=== PATIENT | female | born 1940 | race Caucasian/White ===

== ENCOUNTER 2016-11-21 10:31 | Emergency (ER) | payer MEDICARE, OTHER ==
--- NOTE | 2016-11-21 11:35 | ED.PDOC ---
History of Present Illness - General Chief Complaint: Syncope/Near Syncope Stated Complaint: Chest pain radiating down to abdomen Time Seen by Provider: 11/21/16 11:30 Source: patient, RN notes reviewed, Vital Signs reviewed Exam Limitations: no limitations - History of Present Illness Initial Comments: Patient is a 76 y/o female who has had sharp pains from her neck to her abdomen for the past month. This morning, it hurt so bad that she decided to come into the hospital. However, she got very weak and started shaking, so went to the [facility]. She threw up twice. Her sound editor brought her to the ED. The pain is sharp, is worsened by eating and laying down. She has a history of heartburn for which she takes [place] which helps. Patient admits that prior to coming to the hospital, she did take some of her 's pain medication. She took both Tramadol 50 mg and hydrocodone/APAP 10/325. Although alendronate is on her med list, she is not sure if she is taking it or not. Timing/Duration: getting worse, other - 1 month Severity: severe Worsening Factors: medication Associated Symptoms: chest pain, headaches, nausea/vomiting Allergies/Adverse Reactions: Allergies Sulfa Drugs Allergy (Verified 12/29/15 09:05) Home Medications: Ambulatory Orders Alendronate Sodium [Fosamax] 70 mg PO .QSUNDAY 12/29/15 Verapamil HCl 80 mg PO DAILY 12/29/15 Omeprazole Magnesium [Prilosec Otc] 20 mg PO QAM #30 tab 12/30/15 Pantoprazole Sodium [Protonix] 40 mg PO DAILY #37 tab 11/21/16 Review of Systems - Review of Systems Constitutional: States: weakness EENTM: States: nose congestion Respiratory: States: no symptoms reported Cardiology: States: chest pain Gastrointestinal/Abdominal: States: abdominal pain, constipation, nausea, vomiting Genitourinary: States: dysuria Musculoskeletal: States: joint pain, muscle pain Skin: States: no symptoms reported Neurological: States: headache, numbness, weakness Endocrine: States: no symptoms reported Hematologic/Lymphatic: States: no symptoms reported All other Systems: Reviewed and Negative Past Medical History (General) - Patient Medical History Hx Seizures: No Hx Stroke: No Hx Asthma: No Hx of COPD: Yes Hx Cardiac Disorders: Yes Hx Congestive Heart Failure: No Hx Pacemaker: No Hx Hypertension: Yes Hx Diabetes: No Hx MRSA: No - Vaccination History Hx Influenza Vaccination: Yes - 2014 Hx Pneumococcal Vaccination: Yes - 2012 - Social History Hx Tobacco Use: No Hx Alcohol Use: No Hx Substance Use: No Hx Physical Abuse: No Hx Emotional Abuse: No Family Medical History - Family History Father Family History: No Known Living Status: Cause of : [place] Hx Cardiac Disease: Yes Physical Exam - Physical Exam General Appearance: Alert, Anxious, Comfortable, No apparent distress Ears, Nose, Throat: hearing grossly normal, normal ENT inspection Neck: full range of motion, supple Respiratory: lungs clear, normal breath sounds, no respiratory distress, no accessory muscle use Cardiovascular/Chest: regular rate, rhythm, no edema, no gallop, no murmur Gastrointestinal/Abdominal: normal bowel sounds, soft, tenderness - generalized , however greater in epigastric/RUQ areas Extremity: normal range of motion, non-tender, normal inspection, no pedal edema , no calf tenderness Neurologic: alert, normal mood/affect, oriented x 3 Skin Exam: normal color, warm/dry Progress - Results/Orders Results/Orders: 11/21/16 11/21/16 11/21/16 11:28 11:50 12:14 Temperature 96.9 F L Pulse Rate [L 89 92 H Arm] Respiratory 18 20 Rate Blood Pressure 134/63 147/107 [R Arm] O2 Sat by Pulse 96 95 96 Oximetry 11/21/16 13:00 Temperature Pulse Rate [L 73 Arm] Respiratory 18 Rate Blood Pressure 156/93 [R Arm] O2 Sat by Pulse 97 Oximetry 11/21/16 11:30 Telemetry .ONCE Sodium Chloride 0.9% (Flush) [Saline Flush Syringe] 10 ml IV PRN PRN EKG Stat Pulse Ox Stat Laboratory Results WBC 8.3 K/mm3 (4.8-10.8) 11/21/16 11:20 RBC 4.33 M/mm3 (4.20-5.40) 11/21/16 11:20 Hgb 11.9 gm/dL (12.0-16.0) L 11/21/16 11:20 Hct 36.9 % (36.0-47.0) 11/21/16 11:20 MCV 85.2 fl (81.0-99.0) 11/21/16 11:20 MCH 27.4 pg (27.0-31.0) 11/21/16 11:20 MCHC 32.3 g/dL (33.0-37.0) L 11/21/16 11:20 RDW 14.1 % (11.5-14.5) 11/21/16 11:20 Plt Count 221 K/mm3 (130-400) 11/21/16 11:20 MPV 8.0 fl (7.40-10.4) 11/21/16 11:20 Absolute Neuts (auto) 5.90 K/uL (1.8-6.8) 11/21/16 11:20 Absolute Lymphs (auto) 1.50 K/uL (1.0-3.4) 11/21/16 11:20 Absolute Monos (auto) 0.50 K/uL (0.2-0.8) 11/21/16 11:20 Absolute Eos (auto) 0.30 K/uL (0.0-0.4) 11/21/16 11:20 Absolute Basos (auto) 0.10 K/uL (0.0-0.1) 11/21/16 11:20 Neutrophils % 70.7 % (42.0-78.0) 11/21/16 11:20 Lymphocytes % 18.6 % (20.0-50.0) L 11/21/16 11:20 Monocytes % 6.6 % (2.0-9.0) 11/21/16 11:20 Eosinophils % 3.4 % (1.0-5.0) 11/21/16 11:20 Basophils % 0.7 % (0.0-2.0) 11/21/16 11:20 PT 10.5 SECONDS (9.4-12.5) 11/21/16 11:20 INR 0.930 11/21/16 11:20 PTT (SP) 24.1 SECONDS (25.1-36.5) L 11/21/16 11:20 D-Dimer, Quantitative 862 ng/mL (0-230) H* 11/21/16 11:20 Sodium 142 mmol/L (135-145) 11/21/16 11:20 Potassium 3.9 mmol/L (3.6-5.0) 11/21/16 11:20 Chloride 105 mmol/L (101-111) 11/21/16 11:20 Carbon Dioxide 28 mmol/L (21-31) 11/21/16 11:20 Anion Gap 12.9 (12-18) 11/21/16 11:20 BUN 35 mg/dL (7-18) H 11/21/16 11:20 Creatinine 1.44 mg/dL (0.6-1.3) H 11/21/16 11:20 BUN/Creatinine Ratio 24.3 (10-20) H 11/21/16 11:20 Random Glucose 97 mg/dL (70-105) 11/21/16 11:20 Serum Osmolality 291.0 mOsm/L (275-295) 11/21/16 11:20 Calcium 9.6 mg/dL (8.4-10.2) 11/21/16 11:20 Magnesium 1.9 mg/dL (1.8-2.5) 11/21/16 11:20 Total Bilirubin 0.7 mg/dL (0.2-1.0) 11/21/16 11:20 Direct Bilirubin < 0.1 mg/dL (0-0.2) 11/21/16 11:20 Indirect Bilirubin 0.6 mg/dL (0.2-0.8) 11/21/16 11:20 AST 24 IU/L (10-42) 11/21/16 11:20 ALT 19 IU/L (10-60) 11/21/16 11:20 Alkaline Phosphatase 46 IU/L (42-121) 11/21/16 11:20 Creatine Kinase 38 IU/L (26-140) 11/21/16 11:20 CK-MB (CK-2) 1.4 ng/mL (0.0-4.4) 11/21/16 11:20 CK-MB (CK-2) % Not Reportable 11/21/16 11:20 Troponin I < 0.02 ng/mL (0.01-0.05) 11/21/16 11:20 B-Natriuretic Peptide 51.1 pg/ml (0-100) 11/21/16 11:20 Serum Total Protein 6.1 gm/dL (6.4-8.2) L 11/21/16 11:20 Albumin 3.9 g/dl (3.2-5.5) 11/21/16 11:20 Urine Color Yellow (Yellow) 11/21/16 13:07 Urine Appearance Clear (Clear) 11/21/16 13:07 Urine pH 7.0 (4.5-7.8) 11/21/16 13:07 Ur Specific [place] 1.015 (1.005-1.030) 11/21/16 13:07 Urine Protein Negative mg/dL 11/21/16 13:07 Urine Glucose (UA) Negative mg/dL (Negative) 11/21/16 13:07 Urine Ketones Negative mg/dL (NEGATIVE) 11/21/16 13:07 Urine Blood Negative (Negative) 11/21/16 13:07 Urine Nitrite Negative 11/21/16 13:07 Urine Bilirubin Negative (NEGATIVE) 11/21/16 13:07 Urine Urobilinogen 0.2 mg/dL (0.2-1.0) 11/21/16 13:07 Ur Leukocyte Esterase Negative (Negative) 11/21/16 13:07 Urine RBC 0-1 /hpf 11/21/16 13:07 Urine WBC 0 /hpf 11/21/16 13:07 Ur Epithelial Cells 0-1 /hpf 11/21/16 13:07 Urine Bacteria 0 11/21/16 13:07 - EKG/XRAY/CT EKG: Sinus - 97 bpm, no ST T wave changes, Unchanged from - 12/29/15 Comments: NML axis, Prolonged QT intervals, Abnormal EKG Departure - Departure Clinical Impression: Gastritis, Esophagitis, Dizziness ICD-10 Supporting Text: Dizziness due to medication. Time of Disposition: 14:48 Disposition: Discharge to Home or Self Care Condition: Fair Departure Forms: ED Discharge - Pt. Copy, Patient Portal Self Enrollment Instructions: DI for Esophagitis, Gastritis, DI for Gastritis Diet: bland diet Referrals: Ulises Gutierrez MD [Primary Care Provider] - 1-5 Days Prescriptions: Pantoprazole Sodium [Protonix] 40 mg PO DAILY #37 tab Home Medications: Ambulatory Orders Alendronate Sodium [Fosamax] 70 mg PO .QSUNDAY 12/29/15 Verapamil HCl 80 mg PO DAILY 12/29/15 Omeprazole Magnesium [Prilosec Otc] 20 mg PO QAM #30 tab 12/30/15 Pantoprazole Sodium [Protonix] 40 mg PO DAILY #37 tab 11/21/16 Additional Instructions: Stop Alendronate (Fosamax). Do not take any over the counter medications for stomach upset other than Maalox if needed. Keep appointment with Dr. Gutierrez on 11/23/2016. Follow up in ED if symptoms persist or worsen.
--- NOTE | 2016-11-21 12:46 | RAD ---
EXAM DESCRIPTION: XR CHEST 1 VIEW CLINICAL HISTORY: chest pain COMPARISON: December 29, 2015 TECHNIQUE: Single view chest FINDINGS: Cardiomegaly. Lungs are clear. No pleural effusion or pneumothorax peer IMPRESSION: Unremarkable single view of the chest Electronically signed by: Rubio Cueto MD 11/21/2016 12:44
--- NOTE | 2016-11-21 12:51 | CT ---
EXAM DESCRIPTION: CT CHEST ANGIOGRAPHY WITH IV CONTRAST CLINICAL HISTORY: chest pain/elevated d-dimer COMPARISON: None. TECHNIQUE: Transaxial images were obtained during a rapid injector administration intravenous contrast media. Multi plantar reconstruction was performed. FINDINGS: The thyroid is enlarged. No axillary adenopathy is observed. No hilar or mediastinal adenopathy is seen. No pleural fluid is identified. No adrenal masses are detected. The exam reveals cysts in both kidneys. A 9.8 cm in diameter cyst is observed in the upper pole of patient's right kidney. No aortic abnormality is seen. No evidence of a pulmonary embolus is detected. Minimal atelectatic type parenchymal changes are observed in the lung bases. No pulmonary nodule is detected. No infiltrate is seen. IMPRESSION: 1. Thyromegaly is observed. 2. No evidence of a pulmonary embolus or aortic abnormality is seen. 3. A large cyst is detected in the upper pole of right kidney. Electronically signed by: Anshul Day MD 11/21/2016 12:50
[2016-11-21 13:04] VITALS: O2SAT 97
[2016-11-21] MEDS: SODIUM CHLORIDE 0.9% (FLUSH) 10 ML SYG IV PRN (13:29)
[2016-11-21] MEDS ORDERED: PANTOPRAZOLE SODIUM IV 40 MG VIAL IV ONE (14:37)
[2016-11-21 15:13] VITALS: BP 145/85; TEMP 98.4
== END 2016-11-21 15:10 | disposition home or self-care (01) ==
LOC: ER 10:31
DX: K29.70 Gastritis, unspecified, without bleeding (principal); R42 Dizziness and giddiness; K20.9 Esophagitis, unspecified; J44.9 Chronic obstructive pulmonary disease, unspecified; I10 Essential (primary) hypertension; Z88.2 Allergy status to sulfonamides; Z79.899 Other long term (current) drug therapy; Z82.49 Family history of ischemic heart disease and other diseases of the circulatory system

== ENCOUNTER → 2016-11-23 | Outpatient (CLI) | payer MEDICARE | END | disposition home or self-care (01) | LOC: GMAH 12:30 | PROVIDERS: ATTEND Family Medicine | DX: E04.9 Nontoxic goiter, unspecified (principal) ==

== ENCOUNTER 2017-02-22 11:08 | Emergency (ER) | payer MEDICARE ==
--- NOTE | 2017-02-22 11:52 | ED.PDOC ---
History of Present Illness - General Chief Complaint: Abdominal Pain Stated Complaint: ABDOMINAL PAIN Time Seen by Provider: 02/22/17 11:42 Source: patient Exam Limitations: no limitations - History of Present Illness Initial Comments: Patient presents with an acute exacerbation of chronic abdominal pain. She says she has had the pain for one month but this morning it was worse. The pain is mid-abdominal, worse with pressure, non-radiating, burning, multiple previous episodes. She has a dx of gastritis for which she takes omeprazole. She say she took an Excedrin this morning for the pain and it feels better now. Eating has no effect on the pain. She also says that for about a month she has had black stool with some blood mixed in with it. She denies weakness or palpitations. No other complaints. Timing/Duration: other - one month Severity: moderate Improving Factors: nothing Worsening Factors: other - palpation Associated Symptoms: denies symptoms Allergies/Adverse Reactions: Allergies Sulfa Drugs Allergy (Verified 12/29/15 09:05) Home Medications: Ambulatory Orders Alendronate Sodium [Fosamax] 70 mg PO .QSUNDAY 12/29/15 Verapamil HCl 80 mg PO DAILY 12/29/15 Omeprazole Magnesium [Prilosec Otc] 20 mg PO QAM #30 tab 12/30/15 Pantoprazole Tablet [Protonix] 40 mg PO DAILY #37 tab 11/21/16 Amoxicillin & Pot Clavulanate [Augmentin] 875 mg PO BID #28 tab 02/22/17 Review of Systems - Review of Systems Constitutional: States: no symptoms reported EENTM: States: no symptoms reported Respiratory: States: no symptoms reported Cardiology: States: no symptoms reported Gastrointestinal/Abdominal: States: see HPI Genitourinary: States: no symptoms reported Musculoskeletal: States: no symptoms reported Skin: States: no symptoms reported Neurological: States: no symptoms reported Endocrine: States: no symptoms reported Hematologic/Lymphatic: States: see HPI Past Medical History (General) - Patient Medical History Hx Seizures: No Hx Stroke: No Hx Asthma: No Hx of COPD: Yes Hx Cardiac Disorders: Yes Hx Congestive Heart Failure: No Hx Pacemaker: No Hx Hypertension: Yes Hx Diabetes: No Hx Gastroesophageal Reflux: Yes Hx Cancer: No Hx Hepatitis C: No Hx MRSA: No - Vaccination History Hx Tetanus, Diphtheria Vaccination: No Hx Influenza Vaccination: Yes - 2014 Hx Pneumococcal Vaccination: Yes - 2013 - Social History Hx Tobacco Use: No Hx Chewing Tobacco Use: No Hx Alcohol Use: No Hx Substance Use: No Hx Substance Use Treatment: No Hx Depression: No Hx Physical Abuse: No Hx Emotional Abuse: No Hx Suspected Abuse: No - Female History Patient : No Family Medical History - Family History Father Family History: No Known Living Status: Cause of : [place] Hx Cardiac Disease: Yes Physical Exam - Physical Exam General Appearance: Alert Ears, Nose, Throat: normal ENT inspection Neck: non-tender, full range of motion, supple Respiratory: lungs clear Cardiovascular/Chest: normal peripheral pulses, regular rate, rhythm Gastrointestinal/Abdominal: other - TTP over central abdomen. NABS. Mild guarding. No rebound tenderness. Back Exam: normal inspection, no CVA tenderness Extremity: normal range of motion, non-tender, normal inspection Skin Exam: normal color Lymphatic: no adenopathy Progress - Progress Progress: 02/22/17 13:12 + leukocytosis hb 10.1 CT showed divirticulosis without CT evidence of diverticulitis. Given the wbc of 13.3 and 92.9% neutrophils, I will treat for possibly developing diverticulitis and have her follow up with her pcp for colonoscopy. Laboratory Tests 02/22/17 02/22/17 02/22/17 12:00 12:00 12:00 WBC 13.3 H RBC 3.88 L Hgb 10.5 L Hct 33.3 L MCV 85.6 MCH 27.0 MCHC 31.6 L RDW 14.8 H Plt Count 285 MPV 6.9 L Absolute Neuts (auto) 12.30 H Absolute Lymphs (auto) 0.80 L Absolute Monos (auto) 0.20 Absolute Eos (auto) 0.00 Absolute Basos (auto) 0.00 Neutrophils % 92.9 H Lymphocytes % 5.7 L Monocytes % 1.3 L Eosinophils % 0.0 L Basophils % 0.1 Sodium 141 Potassium 4.2 Chloride 105 Carbon Dioxide 26 Anion Gap 14.2 BUN 33 H Creatinine 1.50 H BUN/Creatinine Ratio 22.0 H Random Glucose 140 H Serum Osmolality 290.8 Calcium 10.6 H Total Bilirubin 0.4 AST 22 ALT 24 Alkaline Phosphatase 46 Serum Total Protein 6.5 Albumin 4.0 Globulin 2.5 Albumin/Globulin Ratio 1.6 Lipase 60 H Departure - Departure Clinical Impression: Diverticulosis, Diverticulitis Disposition: Discharge to Home or Self Care Condition: Good Departure Forms: ED Discharge - Pt. Copy, Patient Portal Self Enrollment Instructions: DI for Abdominal Pain-Adult Diet: resume usual diet Activity: increase activity as tolerated Referrals: Ulises Gutierrez MD [Primary Care Provider] - 1-2 Weeks Prescriptions: Amoxicillin & Pot Clavulanate [Augmentin] 875 mg PO BID #28 tab Home Medications: Ambulatory Orders Alendronate Sodium [Fosamax] 70 mg PO .QSUNDAY 12/29/15 Verapamil HCl 80 mg PO DAILY 12/29/15 Omeprazole Magnesium [Prilosec Otc] 20 mg PO QAM #30 tab 12/30/15 Pantoprazole Tablet [Protonix] 40 mg PO DAILY #37 tab 11/21/16 Amoxicillin & Pot Clavulanate [Augmentin] 875 mg PO BID #28 tab 02/22/17 Additional Instructions: Follow up with your regular doctor within one week to schedule colonoscopy. Take medication as prescribed. Avoid aspirin until further instructed by your doctor.
[2017-02-22 12:13] VITALS: TEMP 99.2
--- NOTE | 2017-02-22 13:07 | CT ---
EXAM DESCRIPTION: Abdomen/Pelvis w/Contrast CLINICAL HISTORY: abdominal pain, leukocytosis COMPARISON: None. TECHNIQUE: Postcontrast CT images of the abdomen and pelvis are obtained. This exam was performed according to our departmental dose-optimization program, which includes automated exposure control, adjustment of the mA and/or kV according to patient size and/or use of iterative reconstruction technique . FINDINGS: Lung bases are unremarkable. The spleen, pancreas, adrenal glands, and contracted gallbladder are unremarkable. There is a 10 mm low-attenuation lesion with Hounsfield units of 46 in the inferior right lobe of the liver. Several less than 5 mm hypodense lesions are seen in the left lobe of the liver and inferior right lobe. Moderate atherosclerotic disease with tortuosity of the aortoiliac system is seen. The left kidney demonstrates focal areas of cortical thinning mainly involving the upper pole with overall lobular appearance to the kidney. There is a fluid attenuation cortical cyst in the lateral midpole. No hydronephrosis or significant nephrolithiasis. There is a large complex cyst involving the mid to upper pole of the right kidney measuring at least 9.7 x 5.5 x 9.3 cm. There are thin curvilinear calcifications in the periphery of this cystic lesion with septation between 2 cysts showing mild calcification. There is thinning of the renal cortex around this lesion. Focal cortical thinning in the lower pole the right kidney seen with 5 mm cortical calcification. There are several other smaller fluid attenuation cortical cysts of the right kidney. No ureteral obstruction is seen. Urinary bladder is unremarkable. Uterus is unremarkable. Ovaries are not seen. The appendix is retrocecal and unremarkable. No small bowel obstruction. There is a moderate volume of formed fecal material throughout colon. Scattered diverticuli in the mostly descending to sigmoid region are seen without associated inflammatory changes or fluid collections. No pathologic lymphadenopathy. No aggressive bony lesions. Moderate to severe degenerative changes of the spine are seen. IMPRESSION: Cortical thinning is seen in both kidneys that could represent sequela of remote infectious or inflammatory etiology. Multiple bilateral renal cortical cysts are seen. Bosniak type II cystic lesion of the right mid to upper pole kidney with thin curvilinear calcifications. Consider six-month imaging follow-up to determine stability. Colon diverticulosis without CT evidence of diverticulitis. Moderate colon constipation or obstipation. Other findings as described in body of report. Hypodense lesion in the inferior right lobe of the liver could represent complex cyst or hemangioma. There are several tiny subcentimeter hypodense lesions in the left lobe and anterior right lobe that are too small to adequately characterize. Consider nonemergent follow-up ultrasound imaging. Electronically signed by: Slade Hernandez MD 02/22/2017 1:06 PM CDT
[2017-02-22 13:39] VITALS: O2SAT 99
[2017-02-22 14:28] VITALS: BP 149/88
== END 2017-02-22 14:28 | disposition home or self-care (01) ==
LOC: ER 11:08
DX: K57.92 Diverticulitis of intestine, part unspecified, without perforation or abscess without bleeding (principal); J44.9 Chronic obstructive pulmonary disease, unspecified; I10 Essential (primary) hypertension; K21.9 Gastro-esophageal reflux disease without esophagitis; Z88.2 Allergy status to sulfonamides; Z79.899 Other long term (current) drug therapy